=== PATIENT | female | born 1985 | race Two or more races ===

== ENCOUNTER 2022-04-10 17:21 | Emergency (ER) | payer OTHER ==
[2022-04-10 17:40] VITALS: BP 122/78
[2022-04-10] MEDS ORDERED: lidocaine 1% 20 ML MDV SUBQ ONE (17:49)
[2022-04-10] MEDS ORDERED: BACITRACIN ZINC OINT 1 PACKET TOP STA (17:50)
--- NOTE | 2022-04-10 18:27 | ED Physician Documentation ---
History of Present Illness - Stated complaint Stated Complaint: L INDEX FINGER LAC - Chief complaint Chief Complaint: Laceration - Additonal information Additional information: 36-year-old male presents emergency department for evaluation of a left index finger laceration sustained when using a sharp knife to cut fishing wire. He has a V-shaped lack on the radial side of the index finger between the MCP and PIP joint. Tetanus is up-to-date. Bleeding controlled pressure. Sensation preserved. Review of Systems Constitutional: denies: Fever, Chills Cardiac: reports: Reviewed and negative Respiratory: reports: Reviewed and negative GI: reports: Reviewed and negative Skin: reports: Laceration (s) Musculoskeletal: reports: Reviewed and negative PD PAST MEDICAL HISTORY - Allergies Allergies/Adverse Reactions: Allergies Allergy/AdvReac Type Severity Reaction Status Date / Time No Known Drug Allergies Allergy Verified 04/10/22 17:40 PD ED PE EXPANDED - Extremities Extremities: Left finger(s) (4 cm V-shaped laceration radial side left index finger between MCP and PIP joint. No exposed tendon or bone. Patient is able to flex and extend at all joints against resistance. Normal sensation.) Results - Vitals Vitals: Vital Signs - 24 hr 04/10/22 17:37 Temperature 36.4 C L Heart Rate 68 Respiratory 16 Rate Blood Pressure 122/78 O2 Saturation 100 Oxygen O2 Source Room air Procedures - Laceration (location) Left index finger Length in cm: 4 Wound type: Flap Neurovascular status: Sensory intact, Motor intact, Vascular intact Tendon involvement: Tendon intact Anesthesia: Lidocaine 1% Wound preparation: Chlorhexadine, Irrigated copiously NS Skin layer closure: Running, Size #-0 - enter number (4), Sutures - enter # (8) Other: Patient tolerated well, No complications, Neurovascular intact, Tetanus UTD PD MEDICAL DECISION MAKING - ED course Complexity details: considered differential, d/w patient ED course: 28-year-old male presents emergency department for evaluation of left index finger laceration. On exam neurovascularly intact. No evidence of tendon injury. Wound was closed using 8 interrupted sutures. Routine care and emergent return precautions were discussed. Departure - Departure Disposition: 01 Home, Self Care Clinical Impression: Laceration of left index finger Qualifiers: Encounter type: initial encounter Damage to nail status: without damage Foreign body presence: without foreign body Qualified Code(s): S61.211A - Laceration without foreign body of left index finger without damage to nail, initial encounter Condition: Stable Record reviewed to determine appropriate education?: Yes Instructions: ED Laceration Hand Comments: Your suture(s) should be removed in 7 to 10 days. In 24 hours you may remove the dressing wash gently with warm soap and water, apply any antibiotic ointment and a simple bandage. Your tetanus is up-to-date. Please attempt to keep your wound clean and dry. Do not submerge it in dirty dishwater or bath water. Return to the emergency department if you have any concerns of infection such as redness, fevers milky drainage increased pain.
== END 2022-04-10 18:46 | disposition home or self-care (01) ==
LOC: ED 17:21
DX: S61.211A Laceration without foreign body of left index finger without damage to nail, initial encounter (principal); W26.0XXA Contact with knife, initial encounter; Y93.89 Activity, other specified
CPT/HCPCS: 12002; 99282; A9270

== ENCOUNTER 2022-07-20 09:14 | Outpatient (CLI) | payer OTHER ==
--- NOTE | 2022-07-20 14:08 | MRI Report ---
PROCEDURE: LUMBAR SPINE WO INDICATIONS: LOW BACK PAIN TECHNIQUE: Noncontrast sagittal T1 spin echo and T2 fast echo, sagittal STIR, axial T1 and T2 fast spin echo thr ough the lumbar spine. In cases with scoliosis, additional coronal T2 fast spin echo may be performe d. COMPARISON: None. FINDINGS: From T12-L1 through L3-L4, there is no spinal canal stenosis, neural foraminal stenosis, or focal ner ve root impingement. No significant degenerative change at these levels. L4-L5: Annular fissure. Disc desiccation and disc height loss. Diffuse disc bulge with superimposed broad-based posterior disc protrusion. Annular fissure in the central, right paracentral, right suba rticular zones. Mild displacement of the descending L5 nerve roots in the right subarticular zone. Mi ld neural foraminal narrowing due to foraminal components of the disc bulge and facet hypertrophy. L5-S1: Annular fissure. Diffuse disc bulge with a superimposed broad-based posterior disc protrusion which flattens and indents the ventral thecal sac in addition to mildly displacing the descending S1 nerve roots. Mild bilateral neural foraminal narrowing. IMPRESSION: Lower lumbar spine degenerative changes with displacement of the descending L5 and S1 nerve roots as detailed above. Correlate for any corresponding radicular symptoms. Annular fissures of the L4-L5 and L5-S1 discs represent potential sources of nonradicular axial back pain. Reviewed by: Bart Muse MD on 07/20/2022 2:06 PM PST Approved by: Bart Muse MD on 07/20/2022 2:06 PM PST Station ID: [id number]
== END 2022-07-20 09:15 | disposition home or self-care (01) ==
LOC: DI 09:14
DX: M51.36 Other intervertebral disc degeneration, lumbar region (principal); M48.061 Spinal stenosis, lumbar region without neurogenic claudication; M47.816 Spondylosis without myelopathy or radiculopathy, lumbar region; M51.37 Other intervertebral disc degeneration, lumbosacral region; M48.07 Spinal stenosis, lumbosacral region; M47.817 Spondylosis without myelopathy or radiculopathy, lumbosacral region

== ENCOUNTER 2023-03-07 15:25 | Outpatient (CLI) | payer OTHER ==
[2023-03-07 22:06] VITALS: BP 116/72
--- NOTE | 2023-03-07 22:06 | SLEEP CARE CONSULTATION ---
Information from patient questionnaire entered by Rudy Nunes. I have reviewed and concur with the information entered by Rudy Nunes. This document represents the service I personally performed and the decisions made by me, Bart Dorman MD, [facility]. History of Present Illness Service Date and Time: 03/07/2023 1525 Reason for Visit: New patient Chief Complaint: reports: Insomnia, Fatigue, Frequent awakenings at night Date of Onset: 4-5YRS Usual bedtime: 1130PM Time it takes to fall asleep: 1-2HRS Snores at night: No Observed to quit breathing while asleep: No Sleeps alone due to snoring: No Number of times waking at night: 2-3 Reasons for waking at night: reports: Other (UNKNOWN) Recalls having dreams: Yes Usually gets out of bed at: 610AM OR EARLIER Feels refreshed in the morning: No Morning headache: No Sleepy or fatigued during the day: Yes Ever fallen asleep while driving: No Takes day naps: No Prior sleep studies: No Additional HPI information: I had the pleasure of seeing Mr. Nguyen today regarding the possibility of him having a sleep disorder. As you know, he is a 37 year old gentleman who complains of insomnia involving the sleep onset and sleep maintenance. He saw a psychologist who recommended moving his bedtime from 10 pm to 11:30 pm. He said it has helped him to fall asleep quicker and not wake up during the night. In the morning, he gets up at 6:10 am on weekdays and 8 am on weekends. He has not been told that he snores loudly or irregularly at night. He has never been observed to stop breathing in his sleep. His sleeps in the same bed. He can recall waking up on the average of 2 - 3 times during the night. Most of the time he wakes up because of unknown reason. He has never awakened because of his own snoring, choking, or having to gasp for air. There is not a lot of tossing and turning in his sleep. No somniloquy (sleep talking) or somnambulism (sleep walking). Generally, he can recall having dreams. In the morning he usually gets up out of the bed around 6:10 a.m. not feeling refreshed nor rested. He usually does not have a morning headache. During the day he complains of feeling fatigued. but not sleepy. His score on [place]ander Sleepiness Scale is 0 out of 24. He never has fallen asleep while driving nor has had any accident due to sleepiness. He usually does not take naps during the day. He does not have symptoms of restless leg syndrome. He reports having impaired concentration during the day. - Parasomnia Symptoms Walks in sleep: No Talks in sleep: No Ever felt weak in the knees when startled or emotional: No Bothered by creepy, crawly, restless sensations in legs: No Problems with memory or concentration: Yes Subjective Initial [place] Sleepiness Scale score: 0 (03/07/23) Past Medical History Past Medical History: reports: Anxiety, Depression, Attention deficit Social History The patient's occupation is a [employer]. Patient is and lives in [place]. Have you smoked in the past 12 months: No Years of smokin Quit date: 2008 Alcohol use: Yes Alcohol amount and frequency: 2-3 DRINKS ONCE A MONTH Caffeine use: Yes Caffeine amount and frequency: 1 CUP EVERY MORNING Family History Family history of sleep disordered breathing: No (ADOPTED SO UNKNOWN) Allergies and Home Medications Known drug allergies: No Drug allergies reviewed: Yes Home medication list reviewed: Yes Allergy and home medication list: Allergies No Known Drug Allergies Allergy (Verified 04/21/22 15:06) Review of Systems Cardiovascular: denies: high blood pressure, palpitations, chest pain, irregular heart rate or pulse, leg or foot swelling, have to sleep sitting up, other Respiratory: denies: shortness of breath, wheeze, sputum production, chronic cough, other Gastrointestinal: denies: heartburn, difficulty swallowing, nausea, vomitting, diarrhea, abdominal pain, other Urinary: denies: incontinence, frequency, urgency, impotence, other Neurological: denies: headaches, seizure, head trauma, disorientation, speech dysfunction, gait or balance problems, fainting or unconsciousness, other Psychiatric: reports: anxiety, depression Ear/Nose/Throat: denies: nasal congestion, sinus problems, nose bleeds, dry mouth/throat, hoarseness, injury to nose, tonsillectomy, wisdom teeth removed, other Endocrine: reports: sluggishness Musculoskeletal: reports: back pain Immunologic: reports: sneezing Physical Exam Vital signs obtained and entered by: RUDY Ribeiro MA Blood Pressure: 116/72 (LEFT ARM) Cuff size: regular Heart Rate: 77 O2 Saturation: 98 Height: 5 ft 7 in Weight: 179 lb 6.4 oz Body Mass Index: 28.0 BMI Classification: Overweight Neck circumference: 15.75 Mood/affect: Normal HEENT: No craniofacial malformation Nostrils: patent to airflow Turbinates: normal Septum: midline Mouth and throat: narrow oropharynx Soft palate: long Hard palate: normal Uvula: normal Uvula visualization: 50% Mallampati Class II Tongue: normal in size Tonsils: small Chin and jaw: normal size and position Neck: normal w/o lymphadenopathy or thyromegaly Heart: regular rate and rhythm Lungs: clear bilaterally Extremities: no edema or clubbing Neurologic: intact Impression and Plan IMPRESSION: 1. Insomnia, involving mainly the sleep onset. This has improved with the psychologists recommendation of going to bed later. He will also have to keep the wakeup time constant. This means on the weekends; he should not get up any later than 7 am. The lack of excessive daytime sleepiness suggests that he has been getting adequate sleep all along. An in-laboratory polysomnography will be ordered to rule out sleep-related breathing disorder. Sleep-related breathing disorder is a possibility given frequent awakenings, unrefreshed sleep, cognitive impairment, and persistent fatigue. Plan: 1. Schedule polysomnography and return in 1 to 2 weeks after the study to discuss result and initiate therapy. 2. Maintain a regular wake up time and spend no more than 7 hours in bed at night. Avoid naps. Follow up with Sleep Care in: 1-2 months Visit Type: In Office Time Spent with Patient (minutes): 15 Provider Statement: I spent 100% of the Face to Face Visit with the patient with greater than 50% spent counseling the patient and coordination of care.
== END 2023-03-07 15:26 | disposition home or self-care (01) ==
LOC: SC 15:25
PROVIDERS: ATTEND Internal Medicine Pulmonary Disease
DX: G47.00 Insomnia, unspecified (principal); G47.8 Other sleep disorders; R41.89 Other symptoms and signs involving cognitive functions and awareness; R53.83 Other fatigue; E66.3 Overweight; Z68.28 Body mass index [BMI] 28.0-28.9, adult
CPT/HCPCS: 99202; 99212

== ENCOUNTER 2023-03-23 19:34 | Outpatient (CLI) | payer OTHER | END 2023-03-23 19:35 | disposition home or self-care (01) | LOC: SC 19:34 | PROVIDERS: ATTEND Internal Medicine Pulmonary Disease | DX: G47.8 Other sleep disorders (principal); G47.00 Insomnia, unspecified; R53.83 Other fatigue; R41.89 Other symptoms and signs involving cognitive functions and awareness | CPT/HCPCS: 95810 ==

== ENCOUNTER 2023-04-04 14:20 | Outpatient (CLI) | payer OTHER ==
--- NOTE | 2023-04-06 07:47 | SLEEP CARE CONSULTATION ---
Information from patient questionnaire entered by Rudy Nunes. I have reviewed and concur with the information entered by Rudy Nunes. This document represents the service I personally performed and the decisions made by me, Bart Dorman MD, [facility]. History of Present Illness Service Date and Time: 04/04/2023 1420 Initial [place] Sleepiness Scale score: 0 (03/07/23) Additional HPI information: Mr. Nguyen returned for follow up of the sleep study he had on 03/23/2023. The polysomnography showed that the patient had normal sleep efficiency. The sleep architecture was relatively normal as well considering the first night effect. Respiratory monitoring showed no significant sleep disordered breathing (AHI = 0.3) or hypoxia (sylvie oxygen saturation of 92%). The patient slept mostly supine (supine AHI = 0.4; non-supine = 0.00). Snore was light to loud in intensity. There was no significant periodic leg movement of sleep. Cardiac rhythm was normal sinus rhythm without significant arrhythmia. No abnormal behavior (parasomnia) observed during the night. Sleep Study - Results Type of Sleep Study: Polysomnography (COMPLETED 03/23/23) Prior sleep studies: No Allergies and Home Medications Drug allergies reviewed: Yes Home medication list reviewed: Yes Allergy and home medication list: Allergies No Known Drug Allergies Allergy (Verified 03/07/23 15:52) Physical Exam Vital signs obtained and entered by: RUDY Colbert MA Height: 5 ft 7 in Impression and Plan IMPRESSION: 1. Primary Snore (ICD-10 R06.83), light to loud, but no significant sleep disordered breathing. For his complaint of fatigue, he should follow up with his primary care provider. PLAN: 1. Follow up with the primary care provider. 2. Return to the sleep clinic on as needed basis. Follow up with Sleep Care in: as needed Visit Type: Telehealth Video Video Type: [employer] Patient Location: Home Location of Provider: Office Patient agrees and consents to this telehealth visit type: Yes Patient agrees to have their insurance billed: Yes Time Spent with Patient (minutes): 15 Provider Statement: I spent 100% of the Telehealth Video Call with the patient with greater than 50% spent counseling the patient and coordination of care.
== END 2023-04-04 14:21 | disposition home or self-care (01) ==
LOC: SC 14:20
PROVIDERS: ATTEND Internal Medicine Pulmonary Disease
DX: R06.83 Snoring (principal); R53.83 Other fatigue
CPT/HCPCS: 99212

== ENCOUNTER 2023-11-16 09:30 | Outpatient (CLI) | payer OTHER ==
--- NOTE | 2023-11-16 14:27 | MRI Report ---
PROCEDURE: Lumbar Spine WO INDICATIONS: LUMBAR PX TECHNIQUE: Noncontrast sagittal T1 spin echo and T2 fast echo, sagittal STIR, axial T1 and T2 fast spin echo thr ough the lumbar spine. In cases with scoliosis, additional coronal T2 fast spin echo may be performe d. COMPARISON: None. FINDINGS: Image quality: Excellent. Alignment and Curvature: There is normal bony alignment. Bone Marrow: Marrow is of normal overall signal. No acute vertebral body compression fractures. Spinal Cord: Conus medullaris terminates at the L1-L2 level. Visualized cord demonstrates normal si gnal and size. Paraspinous Soft Tissues: No paravertebral masses. T12-L1: Normal in appearance. L1-L2: Normal in appearance. L2-L3: Normal in appearance. L3-L4: Normal in appearance. L4-L5: Annulus tear plus disc bulge. Borderline canal stenosis. Mild facet hypertrophy. No signific ant foraminal narrowing. L5-S1: Chronic disc height loss. Disc bulge. Mild facet hypertrophy. No canal stenosis or foraminal stenosis. IMPRESSION: 1. Mild lower lumbar facet arthropathy. 2. Annulus tear plus disc bulge with borderline canal stenosis at L4-L5. Reviewed by: Melvin Godfrey MD on 11/16/2023 2:26 PM PST Approved by: Melvin Godfrey MD on 11/16/2023 2:26 PM PST Station ID: [id number]
== END 2023-11-16 09:31 | disposition home or self-care (01) ==
LOC: DI 09:30
PROVIDERS: ATTEND Preventive Medicine Aerospace Medicine
DX: M51.36 Other intervertebral disc degeneration, lumbar region (principal); M47.816 Spondylosis without myelopathy or radiculopathy, lumbar region; M51.37 Other intervertebral disc degeneration, lumbosacral region; M47.817 Spondylosis without myelopathy or radiculopathy, lumbosacral region